=== PATIENT | male | born 1975 | race Two or more races ===

== ENCOUNTER 2022-06-06 12:30 | Inpatient (IN) | payer OTHER ==
[~2022-06-06] VITALS: Ht 180.3 cm; Wt 112.5 kg
--- NOTE | 2022-06-06 12:46 | NUR ---
PACIENTE ALERTA Y ORIENTADO POR MACI. REFIERE SARAH LE REALIZARON COLONOSCOPIA Y DESDE LAS 9:30 AM COLLINS PRESENTADO VOMITOS X3 CON NISHA Y DIARREAS X 3 CON NISHA. PACIENTE LLEGA EN AMBULANCIA, ALERTA Y ORIENTADO POR MACI, CON CANALIZACION EN MANO DERECHA ANGIO #18 Y VENTURY MASK.
--- NOTE | 2022-06-06 13:19 | NUR ---
SE ORIENTA PACIENTE DE TRATAMIENTO MAURICE ORDEN MEDICA. REFIERE ENTENDER.SE MIKE MUESTRAS CON MEDIDAS ASEPTICAS CORRESPONDIENTES. PACIENTE CON IVF'S DE AMBULANCIA PATENTE, AREA TRIXIE DE EDEMA Y/O ERITEMA. BARANDAS ELEVADAS POR ALVAREZ SEGURIDAD. PACIENTE CON BUEN PATRON RESPIRATORIO SATURANDO 98% EN OXIGENO DE AIRE AMBIENTAL. SE MONITOREA POR CAMBIOS.
[2022-06-10] MEDS ORDERED: PHOSLO667 M1 (10:42)
== END 2022-06-11 17:04 | disposition home or self-care (01) | DRG 919 ==
LOC: ER 12:30 → SURH 18:54
PROVIDERS: ADMIT Surgery; ATTEND Surgery
PROC: 05H533Z Insertion of Infusion Device into Right Subclavian Vein, Percutaneous Approach (ICD-10-PCS; 2022-06-07)
PROC: 5A1D70Z Performance of Urinary Filtration, Intermittent, Less than 6 Hours Per Day (ICD-10-PCS; 2022-06-07)
PROC: 5A1D70Z Performance of Urinary Filtration, Intermittent, Less than 6 Hours Per Day (ICD-10-PCS; 2022-06-09)
PROC: 05PY33Z Removal of Infusion Device from Upper Vein, Percutaneous Approach (ICD-10-PCS; 2022-06-10)
PROC: 05HM33Z Insertion of Infusion Device into Right Internal Jugular Vein, Percutaneous Approach (ICD-10-PCS; 2022-06-10)
PROC: 30233N1 Transfusion of Nonautologous Red Blood Cells into Peripheral Vein, Percutaneous Approach (ICD-10-PCS; principal; 2022-06-11)
PROC: 5A1D70Z Performance of Urinary Filtration, Intermittent, Less than 6 Hours Per Day (ICD-10-PCS; 2022-06-11)
DX: K91.841 Postprocedural hemorrhage of a digestive system organ or structure following other procedure (principal); N18.6 End stage renal disease; K62.5 Hemorrhage of anus and rectum; D62 Acute posthemorrhagic anemia; T82.868A Thrombosis due to vascular prosthetic devices, implants and grafts, initial encounter; N17.8 Other acute kidney failure; I12.0 Hypertensive chronic kidney disease with stage 5 chronic kidney disease or end stage renal disease; I95.89 Other hypotension; D12.3 Benign neoplasm of transverse colon; Z99.2 Dependence on renal dialysis; Z20.822 Contact with and (suspected) exposure to COVID-19

== ENCOUNTER 2022-11-10 05:20 | Inpatient (IN) | payer OTHER ==
[~2022-11-10 05:20] MED LIST: PHOSLO667 M1
[2022-11-11] MEDS ORDERED: TOPROL XL100 M1 PO (08:10)
== END 2022-11-11 17:26 | disposition home or self-care (01) | DRG 393 ==
LOC: AMB-ENDOS 05:20 → O/R 10:58 → SURH 10:58 → AMB-ENDOS 13:15 → CIR.AMB 13:15 → SURH 14:03
PROVIDERS: ADMIT Surgery; ATTEND Surgery
PROC: 0DBL8ZX Excision of Transverse Colon, Via Natural or Artificial Opening Endoscopic, Diagnostic (ICD-10-PCS; principal; 2022-11-10)
PROC: 5A1D70Z Performance of Urinary Filtration, Intermittent, Less than 6 Hours Per Day (ICD-10-PCS; 2022-11-10)
DX: D12.3 Benign neoplasm of transverse colon (principal); N18.6 End stage renal disease; D62 Acute posthemorrhagic anemia; K62.5 Hemorrhage of anus and rectum; T82.868A Thrombosis due to vascular prosthetic devices, implants and grafts, initial encounter; Z20.822 Contact with and (suspected) exposure to COVID-19